=== PATIENT | male | born 1930 | race Asian ===

== ENCOUNTER 2017-12-10 17:45 | Emergency (ER) | payer OTHER ==
[~2017-12-10] VITALS: Ht 167.6 cm; Wt 68.0 kg
[2017-12-10 17:50] VITALS: BP_SYST 144
[2017-12-10] MEDS ORDERED: GLIP10TA11 PO (18:15)
[2017-12-10] MEDS ORDERED: HYDR-1189 PO (18:15)
[2017-12-10] MEDS ORDERED: GLU500 PO (18:15)
[2017-12-10] MEDS ORDERED: METF-303 PO (18:15)
[2017-12-10] MEDS ORDERED: NACL 0.9% 1,000 ML IV ONE ×2 (18:30→19:00)
[2017-12-10 19:14] LABS: BASOPHILS % (AUTO) 0.2 % (0.0-2.0); EOSINOPHILS % (AUTO) 1.1 % (0.0-4.0); HEMOGLOBIN 9.2 g/dL (14.0-18.0); LYMPHOCYTES # (AUTO) 0.9 K/uL (1.0-5.5); LYMPHOCYTES % (AUTO) 19.5 % (20.5-51.5); MEAN CORPUSCULAR HEMOGLOBIN 27 pg (27-31); MEAN CORPUSCULAR HGB CONC 34 % (32-36); MEAN CORPUSCULAR VOLUME 78 fL (79.0-98.0); MONOCYTES # (AUTO) 0.7 K/uL (0.0-1.0); NEUTROPHILS # (AUTO) 2.8 K/uL (1.8-7.7); NEUTROPHILS % (AUTO) 64.2 % (40.0-70.0); RED BLOOD CELL COUNT(AUTO) 3.45 MIL/uL (4.2-6.2); RED CELL DISTRIBUTION WIDTH 16.3 % (9.0-15.0); WHITE BLOOD COUNT (AUTO) 4.4 K/uL (4.8-10.8)
[2017-12-10 19:16] LABS: ANION GAP 10 (5-15); CALCIUM 8.7 mg/dL (8.4-11.0); CHLORIDE 94 mmol/L (98-107); CREATININE 0.94 mg/dL (0.55-1.30); GLUCOSE 136 mg/dL (70-99); POTASSIUM 4.4 mmol/L (3.5-5.1); SODIUM SERUM 130 mmol/L (136-145); UREA NITROGEN, BLOOD 13 mg/dL (8-21)
[2017-12-10 19:20] LABS: INR 1.3 (0.80-1.20); PROTHROMBIN TIME 13.5 SECS (9.5-12.5)
[2017-12-10 19:21] LABS: ALANINE AMINOTRANSFERASE 17 U/L (12-78); ALBUMIN 2.6 g/dL (3.4-4.8); ASPARTATE AMINOTRANSFERASE 39 U/L (10-37); TOTAL BILIRUBIN 0.7 mg/dL (0.0-1.0)
[2017-12-10 19:28] LABS: PLATELET COUNT (AUTO) 138 K/uL (130-430)
[2017-12-10 19:51] VITALS: BP_SYST 118
== END 2017-12-10 19:51 | disposition home or self-care (01) ==
LOC: SED 17:45
DX: E86.0 Dehydration (principal); E46 Unspecified protein-calorie malnutrition; E11.9 Type 2 diabetes mellitus without complications; R03.0 Elevated blood-pressure reading, without diagnosis of hypertension; G89.29 Other chronic pain
CPT/HCPCS: 36415; 71045; 80053; 83880; 84484; 85025; 85610; 85730; 93005; 96360; 99285; J7030